=== PATIENT | female | born 1995 | race Caucasian/White ===

== ENCOUNTER 2018-05-31 15:42 | Outpatient (CLI) | payer MEDICAID | END 2018-05-31 17:44 | disposition home or self-care (01) | LOC: OBT 15:42 → L-D 15:43 → OBT 17:44 | DX: O48.0 Post-term pregnancy (principal); O36.8330 Maternal care for abnormalities of the fetal heart rate or rhythm, third trimester, not applicable or unspecified; Z3A.40 40 weeks gestation of pregnancy | CPT/HCPCS: 76818 ==